=== PATIENT | male | born 1935 | race Caucasian/White ===

== ENCOUNTER → 2021-01-27 | Outpatient (CLI) | payer MEDICARE ==
[~2021-01-27] MED LIST: IOHEXOL 240 MG/ML 50ML VIAL. ONE
--- NOTE | 2021-01-27 14:34 | RAD ---
PQRS Compliance Statement: One or more of the following individualized dose reduction techniques were utilized for this examinat ion: 1. Automated exposure control 2. Adjustment of the mA and/or kV according to patient size 3. Use of iterative reconstruction technique CT ABDOMEN W/O CONTRAST 01/27/2021 8:35 AM Indication: Nausea, vomiting and diarrhea with weight loss for 2 weeks. History of prostate cancer. COMPARISON: CT abdomen/pelvis 11/03/2011 TECHNIQUE: Multiple axial CT images of the abdomen were obtained without intravenous contrast. Ernst l and sagittal reformats are provided. FINDINGS: There is a stable 3 mm solid noncalcified nodule in the right middle lobe presumed benign given stabi lity since 11/03/2011. No new or enlarging solid noncalcified pulmonary nodules. Calcified granulomas i dentified at the lung bases. Heart size is within normal limits. Three-vessel coronary artery vascula r calcifications are present. Evaluation of solid abdominal viscera is limited by lack of intravenous contrast. Liver, spleen, adrenal glands and pancreas are normal in appearance. Gallbladder surgicall y absent. Abdominal aorta is normal in caliber with dense calcified atheromatous plaque. Kidneys are symmetric in appearance. No calculi identified in the kidneys or proximal ureters. No hydronephrosis. Oral contrast was administered. Stomach is normal in appearance. Gastric fold pattern appears mainta ined. Small bowel loops are normal in caliber. No bowel obstruction is identified. No suspicious osse ous abnormality is identified. IMPRESSION: No acute abnormality is identified in abdomen and pelvis. Specifically, stomach is normal in appearan ce without associated inflammation. Electronically signed by: Wendy Samuels MD (01/27/2021 2:32 PM) [id number]
== END ==
LOC: CT 08:05
PROVIDERS: ATTEND Internal Medicine
DX: R19.7 Diarrhea, unspecified (principal); R11.2 Nausea with vomiting, unspecified; R91.1 Solitary pulmonary nodule; Z85.46 Personal history of malignant neoplasm of prostate
CPT/HCPCS: 74150

== ENCOUNTER → 2021-07-29 | Outpatient (CLI) | payer MEDICARE ==
--- NOTE | 2021-07-29 13:22 | RAD ---
History: Reason: n v reflux / Spl. Instructions: / History: Procedure: The patient ate a standard meal containing 2 mCi Tc-99m sulfur colloid. Scintigraphic images of the a bdomen were obtained. Counts were obtained. Findings: Retention percentages are as follows: 1 Hr: 66 2 Hr:37 3 Hr:7 4 Hr:1 Normal Retention Percentage Range is as Follows: 1 Hr: 35-91% 2 Hr: 2.7-60% 3 Hr: 0.5-28% 4 Hr: 0-10% Impression: Time to half emptying for solids is estimated at 94 minutes. This is near the upper limits of normal . Electronically signed by: Guero Calvin MD (07/29/2021 1:20 PM) [id number]
== END ==
LOC: NM 08:31
PROVIDERS: ATTEND Internal Medicine Gastroenterology
DX: R11.2 Nausea with vomiting, unspecified (principal)
CPT/HCPCS: 78264; A9541

== ENCOUNTER → 2021-10-13 | Outpatient (CLI) | payer MEDICARE ==
[2021-10-13 15:37] LABS: BASO % 0 % (0-3); EOS # 0.2 x10^3/uL (0.0-0.7); EOS % 2 % (0-3); HEMATOCRIT 37.9 % (39.0-53.0); HEMOGLOBIN 12.5 g/dL (13.0-17.5); LYMPH # 1.1 x10^3/uL (1.0-4.8); LYMPH % 11 % (24-48); MEAN CORPUSCULAR HEMOGLOBIN 31 pg (25-35); MEAN CORPUSCULAR HGB CONC 33 g/dL (31-37); MEAN CORPUSCULAR VOLUME 94 fL (79-100); MONO # 1.1 x10^3/uL (0.0-1.1); MONO % 10 % (0-9); NEUT # 8.3 x10^3uL (1.8-7.7); NEUT % 78 % (31-73); PLATELET COUNT 213 x10^3/uL (140-400); RED BLOOD COUNT 4.03 x10^6/uL (4.30-5.70); RED CELL DISTRIBUTION WIDTH 14.2 % (11.5-14.5); WHITE BLOOD COUNT 10.6 x10^3/uL (4.0-11.0)
[2021-10-13 15:42] LABS: ALBUMIN 3.3 g/dL (3.4-5.0); CALCIUM 8.6 mg/dL (8.5-10.1); CREATININE 1.1 mg/dL (0.7-1.3); GFR 63.6; POTASSIUM 4.3 mmol/L (3.5-5.1); TOTAL BILIRUBIN 0.5 mg/dL (0.2-1.0); TOTAL PROTEIN 6.5 g/dL (6.4-8.2)
== END ==
LOC: LAB 14:32
PROVIDERS: ATTEND Internal Medicine Cardiovascular Disease
DX: Z01.812 Encounter for preprocedural laboratory examination (principal); I25.10 Atherosclerotic heart disease of native coronary artery without angina pectoris
CPT/HCPCS: 36415; 80053; 85025